=== PATIENT | male | born 1950 | race Caucasian/White ===

== ENCOUNTER → 2017-07-03 | Outpatient (CLI) | payer BC ==
[~2017-07-03] MED LIST: GLYCOPYRROLATE2 MG PO; HYOSCYAMINE0.125 M1 PO
[2017-07-04 08:45] LABS: Iron 14 ug/dL (38-169); Iron Saturation 3 % (15-55); UIBC 416 ug/dL (111-343)
== END ==
LOC: RT 12:47
PROVIDERS: Nurse Practitioner Family
DX: R06.02 Shortness of breath (principal); D64.9 Anemia, unspecified

== ENCOUNTER 2017-07-31 08:24 | Day surgery (SDC) | payer BC ==
[~2017-07-31] VITALS: Ht 175.3 cm; Wt 100.7 kg
--- NOTE | 2017-07-31 10:39 | Operative Note ---
Flex Sigmoidoscopy ([place]) Procedure date: 07/31/17 Date of : 54 Procedure:Flex Sigmoidoscopy Flexible sigmoidoscopy with hemorrhoid band ligation Indications: Mr. Mccarty is a 66-year-old gentleman with obstipation/incomplete defecation. The patient did have a colonoscopy with nd in December 2016 and had diverticulosis and grade 2 internal hemorrhoids which were banded. He had no colon polyps but has had colon polyps removed previously. His sister had colon cancer at the age of 53 and his mother also had colon cancer in her late 40s. The patient did not improve with Metamucil or MiraLAX and had constant urgency with very little evacuation. The patient has had rectal bleeding a few times with rectal pain. Performing Provider: Diaz Mccormack MD Referrring Provider: Karen NOGUEIRA Sedation: MAC sedation Procedure: Prior to the procedure, a history and physical exam was performed, and patient medications and allergies were reviewed. The risks and benefits of the procedure and the sedation options and risks were discussed with the patient. All questions were answered and informed consent was obtained. Patient identification and proposed procedure were verified by the physician and the nurse. The patient was placed in a left lateral decubitus position. Throughout the procedure, the patient's blood pressure, pulse, and oxygen saturations were monitored continuously. Findings: On digital rectal examination there was normal rectal tone. There were no external hemorrhoids. The scope was then inserted through the anal canal and the rectum and advanced to 60 cm. Upon withdrawal, there was diverticulosis of the sigmoid colon. Upon retroflexion within the rectum there were grade 1-2 internal hemorrhoids. These were banded using 4 bands with excellent ligation effect. Impressions: 1. Left-sided diverticulosis 2. Grade 1-2 internal hemorrhoids status post band ligation 4 Recommendations: I would encourage water soluble fiber supplementation (Konsyl or Fiber Plus) on a long-term daily maintenance basis. Complications: None EBL (ml): 0 at 0838
[2017-07-31 12:44] VITALS: BP 148/76
== END 2017-07-31 11:30 | disposition home or self-care (01) ==
LOC: SDC 08:24
PROVIDERS: Internal Medicine Gastroenterology
PROC: 06LY4CC Occlusion of Hemorrhoidal Plexus with Extraluminal Device, Percutaneous Endoscopic Approach (ICD-10-PCS; principal; 2017-07-31 10:00)
DX: K57.30 Diverticulosis of large intestine without perforation or abscess without bleeding (principal); K64.0 First degree hemorrhoids; K64.1 Second degree hemorrhoids; Z87.19 Personal history of other diseases of the digestive system; Z80.0 Family history of malignant neoplasm of digestive organs

== ENCOUNTER 2017-08-16 13:14 | Observation (INO) | payer BC ==
[~2017-08-16] VITALS: Ht 175.3 cm; Wt 92.7 kg
[2017-08-16 13:22] VITALS: BP 120/63
[2017-08-16] MEDS ORDERED: SIMVASTATIN20 MG PO (13:26)
[2017-08-16] MEDS ORDERED: CLOPIDOGREL75 M2 PO (13:27)
[2017-08-16] MEDS ORDERED: LOSARTAN POTASS50 MG PO (13:27)
[2017-08-16] MEDS ORDERED: DICLOFENAC SODI75 M2 PO (13:28)
[2017-08-16] MEDS ORDERED: ACTOS 15MG TABL15 MG PO (13:30)
[2017-08-16 13:38] LABS: HEMOGLOBIN 9.7 g/dL (14.1-18.0); LYMPH # 1.6 K/mm3 (0.7-4.5); LYMPH % 22.2 % (10-50)
[2017-08-16 13:53] LABS: STOOL OCCULT BLOOD POSITIVE (NEG)
--- NOTE | 2017-08-16 13:54 | Emergency Room Report ---
History of Present Illness Time Seen by 1346 Presenting Problem in Triage Pt arrived:Wheelchair Presenting Problem:PT C/O BLEEDING FROM HIS RECTUM SINCE 1000. PT REPORTS THIS HAS BEEN GOING ON FOR ROUGHLY A WEEK BUT TODAY'S BLEEDING HAS BEEN THE WORSE. PT ADVISES OF HEMMOROID SURGERY 3 WEEKS AGO. 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 N Clinical Suspician of Infection? N Mental Status: 1 - Regular (Normal Baseline) Sepsis Risk:Low Sepsis Risk Have you (or family members/close friends) recently traveled outside the [place]? N If Yes, where/when: Have you had exposure to infectious disease within the past month? N TB? Other? Specify: Comment The patient complains of massive rectal bleeding. He had banding of hemorrhoids done on 07/31/[address] Mccormack. He has had some bleeding for about a week, but was feeling good and canceled his follow-up appointment for yesterday. Today he had massive amount of bleeding, a bucket full". He has some lightheadedness which has improved with IV fluids. He denies abdominal pain or vomiting. He says his rectum is very sore. Sometimes when he has a bowel movement he can feel something hanging out. ALLERGIES Coded Allergies: Penicillins (I-ITCHING 12/30/16) Home Medications Reported Medications Diclofenac Sodium 75 MG PO Q12 #180 Simvastatin 20 MG PO DAILY #90 Losartan Potassium (Losartan 50MG) 50 MG PO DAILY #90 CLOPIDOGREL BISULFATE (Clopidogrel) 75 MG PO DAILY #90 Pioglitazone (Actos 15MG) 15 MG PO DAILY History Medical History General CAD? No Angina: No CT: No Hypertension? No Hyperlipidemia? No CHF? No DVT? No PE? No COPD? No Asthma? No Anemia? No GERD? No Gastric ulcers? No GI Bleed? No Hernia? Yes Thyroid Problems? No Hypothyroidism? No CVA? No Seizures? No Diabetes? Yes Insulin Dependent: No Insulin Pump: No Home FSBS? Yes Renal Insuffiency? No End Stage Renal Disease? No UTI? No Stones? Yes BPH? No GB Disease: Yes Nephritic Syndrome? No Asplenia? No Hepatitis? No Sickle Cell Disease? No Arthritis? No Migraines? No Cataracts? No Glaucoma? No MRSA? No HIV? No TB? No Anxiety? No Depression? No Cancer? No More? No Immunization Hx DT/Tetanus 1-4 YRS Flu THISFLUSEA Pneumonia NEVER Surgical Hx Previous Surgery?Y PARTIAL LT KNEE REPLACEMN RT ROTATOR CUFF REPAIR LYMPH NODE REMOVED RT AXILLA LAP CHOLECYSTECTOMY Family History Family Hx Diabetes Yes CAD Yes Hypertension Yes Hyperlipidemia Yes Cancer Yes TB Yes Social History Smoking Hx Smoker: Never Smoker Tobacco: No Alcohol Alcohol: No Review of Systems All Other Systems Reviewed and Negative Constitutional denies fever Gastrointestinal see HPI, denies abdominal pain, denies nausea, denies vomiting Physical Exam Vital Signs Vital Signs Date Time Temp Pulse Resp B/P Pulse O2 O2 Flow FiO2 Ox Delivery Rate 08/16 1322 98.4 86 22 120/63 100 General Appearance no apparent distress Eye Exam - bilateral eye normal exam, bilateral eye PERRL, bilateral eye EOMI Ear, Nose, Throat hearing grossly normal, normal ENT inspection Neck normal inspection, non-tender, supple, full range of motion Respiratory Status Yes: trachea midline, chest symmetrical. No: respiratory distress. Lung Sounds bilateral: normal breath sounds, lungs clear. Cardiovascular normal exam, regular rate/rhythm, no peripheral edema, no gallop, no JVD, no murmur, no rub, normal peripheral pulses Peripheral Pulses Pulses normal Yes Gastrointestinal normal bowel sounds, normal exam, non tender, soft, no organomegaly Extremities normal inspection Rectal nothing protruding externally. Tenderness. No edema or erythema. Unable to perform digital rectal examination secondary to tenderness. Neurologic alert, normal exam, oriented x 3 Mental status normal mood/affect Skin intact, warm/dry, pallor Medical Decision Making LABS/Meds/Orders Pt receiving controlled substance in ED? No Results/Orders Laboratory Tests 08/16/17 1355: Antibody Screen NEGATIVE, Miscellaneous Test POSITIVE 08/16/17 1331: Stool Occult Blood Cancelled 08/16/17 1330: Sodium 138, Potassium 3.9, Chloride 104, Carbon Dioxide 23, BUN 17, Creatinine 1.2, Estimated Creat Clear 84, Estimated GFR (MDRD) 61, Glucose 136 H, Calcium 8.8, Total Bilirubin 0.5, AST 27, ALT 32, Alkaline Phosphatase 67, Total Protein 7.0, Albumin 3.6, Globulin 3.4 H, Albumin/Globulin Ratio 1.1, WBC 7.2, RBC 4.37 L, Hgb 9.7 L, Hct 32.0 L, MCV 73.2 L, RDW 22.2 H, Plt Count 404, MPV 7.4, Gran % 69.6, Gran # 5.0, Lymphocytes % 22.2, Monocytes % 4.9, Eosinophils % 2.8, Basophils % 0.5, Lymphocytes # 1.6, Monocytes # 0.4, Eosinophils # 0.2, Basophils # 0.0, PUBS MCHC 30.4 L, MCH 22.3 L 08/16/17 1320: Stool Occult Blood POSITIVE Current Medication Orders Sig/Annika Start time Last Medication Dose Route Stop Time Status Admin Iopamidol 75 ML ONCE ONE 08/16 1430 DC 08/16 IV 08/16 1431 1430 Sodium Chloride 10 ML ONCE ONE 08/16 1430 DC 08/16 IV 08/16 1431 1430 Sodium Chloride 500 ML .Q1H 08/16 1345 DC 08/16 IV 08/16 1414 1347 Sodium Chloride 10 ML PRN PRN 08/16 1345 AC IV 08/17 1331 Sodium Chloride 1,000 ML .STK-MED ONE 08/16 1337 DC IV Sodium Chloride 10 ML PRN PRN 08/16 1330 AC IV 08/17 1322 Orders Procedure Date/time Status Decision to admit 08/16 1520 Active STOOL OCCULT BLOOD 08/[address] ABD/PELVIS REQ 08/16 133 Complete IV SALINE LOCK 08/16 1331 Active TYPE FOR CROSSMATCH 08/16 1331 Complete CBC WITH AUTO DIFF 08/16 1331 Complete CHEM 12 PROFILE 08/16 1331 Complete XRAY/CT/US XRAY/CT/US CT abdomen, pelvis Comment CT scan interpreted by radiologist: Mild thickening of the rectosigmoid colon. This could be due to nondistention or mild proctocolitis. Few scattered diverticula he descending colon and sigmoid colon. Indeterminant isodensity of the liver at the gallbladder fossa region. Questionable clinical significance. RIGHT lower lobe pneumonia. Progress - 3:00 PM: I have discussed the case with Dr. Watson who agrees to admit the patient to the hospital. We discussed the patient's clinical information, including history, exam, laboratory and radiology results and ED course. Per hospital procedure, I will write temporary bridge inpatient orders on the patient. Specific orders requested by the admitting physician: Surgery consult 3:50 PM: Discussed x-ray and CT finding of possible pneumonia with patient. He says he has had rhinorrhea, congestion of his RIGHT year in sinus, and a mild productive cough. Will treat with Levaquin. 3:58 PM: Discussed with Dr. Guaman. Departure Departure Disposition Still a Patient Clinical Impression Primary Impression: Rectal bleeding Secondary Impressions: Community acquired pneumonia Qualifiers: Laterality: right Lung location: lower lobe of lung Qualified Code: J18.1 - Lobar pneumonia, unspecified organism Condition STABLE ED Critical Care Critical Care No at 6800
--- OUTSIDE RECORDS SUMMARY | 2017-08-16 13:58 | External Medical Summary Rpt | CCD ---
Author Author , OCTAVIO CUNNINGHAM Address Unknown Phone [email or web address] Immunization Name Date Rout CVX Reac Dose Comm Prov Is Faci e tion ent ider Refu lity Give sed n Infl 10-0 Intr 150 0.5 Hist GSHA No GSHA uenz 9-20 amus mL oric NE NE a 17 cula al Quad r Info Inj rmat ion - Sour ce Unsp ecif ied PPV2 10-0 Intr 33 0.5 Hist WALM No WALM 3 4-20 amus mL oric ART5 ART5 16 cula al 91 91 r Info rmat ion - Sour ce Unsp ecif ied Infl 10-0 Intr 150 0.5 Hist WALM No WALM uenz 4-20 amus mL oric ART5 ART5 a 16 cula al 91 91 Quad r Info Inj rmat ion - Sour ce Unsp ecif ied
--- OUTSIDE RECORDS SUMMARY | 2017-08-16 13:58 | External Medical Summary Rpt | CCD ---
Author Author , OCTAVIO Organization OCT[facility] Address Unknown Phone [email or web address] Purpose Continuity of Care Document - 06-19-2017 through 2016 Results Labs Lab Lab Date Result Refere Interp Status Commen Order Detail nces retati t Range on Hemoglobin A1c in Blood (06-19-2017 08:25) Hemoglo 6.8 % 0.0% Normal complet bin A1c 017 - ed in 08:25 7.0% Blood
--- OUTSIDE RECORDS SUMMARY | 2017-08-16 13:58 | External Medical Summary Rpt | CCD ---
Author Author , OCTAVIO CUNNINGHAM Address Unknown Phone [email or web address] Immunization Name Date Rout CVX Reac Dose [...]
--- OUTSIDE RECORDS SUMMARY | 2017-08-16 13:58 | External Medical Summary Rpt | CCD ---
Author Author [employer] Organization [employer] Address Unknown Phone Unavailable Purpose Continuity of Care Document - through 2016
--- OUTSIDE RECORDS SUMMARY | 2017-08-16 13:58 | External Medical Summary Rpt | CCD ---
Author Author , OCTAVIO Organization [facility] Address Unknown Phone Purpose Continuity of Care Document - 06-19-2017 through 2016 Results Labs Lab Lab Date Result Refere Interp Status Commen Order Detail nces retati t Range on Hemoglobin A1c in Blood (06-19-2017 08:25) Hemoglo 6.8 % 0.0% Normal complet bin A1c 017 - ed in 08:25 7.0% Blood
--- OUTSIDE RECORDS SUMMARY | 2017-08-16 13:59 | External Medical Summary Rpt ---
Author Author OCTAVIO Christiansen, [employer] Organization [employer] Address Unknown Phone Unavailable Results Glucose [Mass/volume] in Capillary blood by Glucometer Observa Value Referen Units Interpr Notes Date tion ce etation Range Glucose 70 - 110 mg/dl High No Jul 31 [Mass/vol informati 2017 9:20 ume] in on in AM Capillary source blood by data Glucomete r Iron and TIBC Observa Value Referen Units Interpr Notes Date tion ce etation Range Iron 250 - 450 ug/dL No No Jun 23 binding informati informati 2017 capacity on in on in 12:58 PM [Mass/vol source source ume] in data data Serum or Plasma Iron 111 - 343 ug/dL High No Jul 03 binding informati 2017 capacity. on in 12:58 PM unsaturat source ed data [Mass/vol ume] in Serum or Plasma Iron 38 - 169 ug/dL Low No Jul 03 [Mass/vol informati 2017 ume] in on in 12:58 PM Serum or source Plasma data Iron 15 - 55 % Low Performed Jul 03 saturatio at: CB 2017 n [Mass] - [facility] 12:58 PM in Serum or Plasma [address] [id number] Budget Clerk: Burak Pretty PhD, Phone: [phone] Ferritin [Mass/volume] in Serum or Plasma Observa Value Referen Units Interpr Notes Date ti ce etation Range Ferritin 8 - 388 ng/mL Normal No Jun 23 [Mass/vol informati 2017 ume] in on in 12:58 PM Serum or source Plasma data 25-Hydroxyvitamin D [Mass/volume] in Serum or Plasma Observa Value Referen Units Interpr Notes Date tion ce etation Range 25-Hydrox 30.0 - ng/mL No Vitamin D Oct 9 yvitamin 100.0 informati 2017 8:25 D on in deficienc AM [Mass/vol source y has ume] in data been Serum or defined Plasma by the [place] ofMedicin e and an Endocrine Society practice guideline as alevel of serum 25-OH vitamin D less than 20 ng/mL (1,2).The Endocrine Society went on to further define vitamin Dinsuffic iency as a level between 21 and 29 ng/mL (2).1. IOM (Institut e of Medicine) . 2010. Dietary reference intakes for calcium and D. [place] ru[place]: [employer].2. Fletcher MF, Garth NC, Julia Vidal WEEKS, et al.Evalua tion, treatment , and preventio n of vitamin Ddeficien cy: an Endocrine Society clinical practiceg uideline. JCEM. 2010; 96(7):191 1-30.Perf ormed at: - [facility] [address] [id number] [place], [place] [id number] Budget Clerk: Burak Pretty PhD, Phone: [phone] Hemoglobin A1c in Blood Observa Value Referen Units Interpr Notes Date tion ce etation Range Hemoglo 6.8 0.0 - % Normal < 6% Jun 19 bin A1c 7.0 NON-GLENN 2017 in BETIC 8:25 AM Blood LEVEL< 7% CONTROL LED DIABETI C LEVEL> 8% POORLY CONTROL LED DIABETI C LEVEL Comprehensive metabolic 2000 panel in Serum or Plasma Observa Value Referen Units Interpr Notes Date tion ce etation Range Albumin/G 1.1 - 1.8 No Normal No Jun 19 lobulin informati informati 2016 8:25 [Mass on in on in AM ratio] in source source Serum or data data Plasma Albumin 3.4 - 5.0 gm/dL Normal No Jun 19 [Mass/vol informati 2016 8:25 ume] in on in AM Serum or source Plasma data Alkaline 46 - 116 U/L Normal No Jun 19 phosphata informati 2016 8:25 se on in AM [Enzymati source c data activity/ volume] in Serum or Plasma Bilirubin 0.2 - 1.0 mg/dL Normal No Jun 19 .total informati 2016 8:25 [Mass/vol on in AM ume] in source Serum or data Plasma Urea 7 - 18 mg/dL Normal No Jun 19 nitrogen informati 2016 8:25 [Mass/vol on in AM ume] in source Serum or data Plasma Calcium 8.5 - mg/dL Normal No Jun 19 [Mass/vol 10.1 informati 2016 8:25 ume] in on in AM Serum or source Plasma data Chloride 98 - 107 mmoL/L Normal No Oct 9 [Moles/vo informati 2016 8:25 lume] in on in AM Serum or source Plasma data Carbon 21.0 - mmoL/L Normal No Oct 9 dioxide, 32.0 informati 2016 8:25 total on in AM [Moles/vo source lume] in data Serum or Plasma Creatinin 0.70 - mg/dL Normal No Jun 9 e 1.30 informati 2016 8:25 [Mass/vol on in AM ume] in source Serum or data Plasma Estimated >60 ML/MIN No REFERENCE Oct 9 informati RANGE: 2017 8:25 glomerula on in >60 AM r source ML/MIN/1. filtratio data 73 SQUARE n rate METERSIf (GF this patient is -A merican, then multiply theresult by 1.210. Globulin 1.3 - 3.2 gm/dL High No Jun 9 [Mass/vol informati 2016 8:25 ume] in on in AM Serum source data Glucose 74 - 106 mg/dL High No Jun 9 [Mass/vol informati 2016 8:25 ume] in on in AM Serum or source Plasma data Potassium 3.5 - 5.1 mmoL/L Normal No Oct 9 informati 2016 8:25 [Moles/vo on in AM lume] in source Serum or data Plasma Sodium 136 - 145 mmoL/L Normal No Jun 9 [Moles/vo informati 2016 8:25 lume] in on in AM Serum or source Plasma data Aspartate 15 - 37 U/L Normal No Jun 9 informati 2016 8:25 aminotran on in AM sferase source [Enzymati data c activity/ volume] in Serum or Plasma Alanine 12 - 78 U/L Normal No Oct 9 aminotran informati 2016 8:25 sferase on in AM [Enzymati source c data activity/ volume] in Serum or Plasma Protein 6.4 - 8.2 gm/dL Normal No Jun 9 [Mass/vol informati 2016 8:25 ume] in on in AM Serum or source Plasma data Thyroxine (T4) free [Mass/volume] in Serum or Plasma Observa Value Referen Units Interpr Notes Date tion ce etation Range Thyroxine 0.76 - ng/dL Normal No Jun 9 (T4) 1.46 informati 2017 8:25 free on in AM [Mass/vol source ume] in data Serum or Plasma Lipid 1996 panel in Serum or Plasma Observa Value Referen Units Interpr Notes Date tion ce etation Range Cholester < 200 mg/dL No No Jun 9 ol informati informati 2016 8:25 [Moles/vo on in on in AM lume] in source source Unspecifi data data ed specimen Cholester 40 - 60 MG/DL Normal No Jun 19 ol in HDL informati 2016 8:25 on in AM [Mass/vol source ume] in data Serum or Plasma Cholester 0 - 130 mg/dL Normal No Jun 19 ol in LDL informati 2016 8:25 on in AM [Mass/vol source ume] in data Serum or Plasma by calculati on Triglycer 30 - 200 mg/dL Normal No Jun 19 griselda informati 2016 8:25 [Moles/vo on in AM lume] in source Serum or data Plasma Cholester 0 - 40 No Normal No Jun 19 ol in informati informati 2016 8:25 VLDL on in on in AM [Mass/vol source source ume] in data data Serum or Plasma Prostate specific Ag [Mass/volume] in Cerebral spinal fluid Observa Value Referen Units Interpr Notes Date tion ce etation Range Prostate 0.0 - 4.0 ng/mL Normal No Jun 19 specific ati 2016 8:25 Ag on in AM [Mass/vol source ume] in data Cerebral spinal fluid Thyrotropin [Units/volume] in Serum or Plasma Observa Value Referen Units Interpr Notes Date tion ce etation Range Thyrotrop 0.358 - uIU/ml Normal No Jun 19 in 3.740 informati 2016 8:25 [Units/vo on in AM lume] in source Serum or data Plasma CBC W Auto Differential panel in Blood Observa Value Referen Units Interpr Notes Date tion ce etation Range Basophils 0 - 0.2 K/MM3 Normal No Jun 19 informati 2016 8:25 [#/volume on in AM ] in source Blood by data Automated count Basophils 0.1 - 2.0 % Normal No Jun 19 /100 informati 2016 8:25 leukocyte on in AM s in source Blood by data Automated count Eosinophi 0.0 - 0.4 K/mm3 Normal No Jun 9 ls ati 2016 8:25 [#/volume on in AM ] in source Blood by data Automated count Eosinophi 0.1 - % Normal No Jun 19 ls/100 12.0 informati 2016 8:25 leukocyte on in AM s in source Blood by data Automated count Granulocy 1.3 - 8.0 K/mm3 Normal No Jun 9 sherrill informati 2016 8:25 [#/volume on in AM ] in source Blood by data Automated count Granulocy 37.0 - % Normal No Jun 19 sherrill/100 80.0 informati 2016 8:25 leukocyte on in AM s in source Blood by data Automated count Hematocri 42.0 - % Low No Jun 19 t [Volume 52.0 informati 2016 8:25 on in AM Fraction] source of Blood data Hemoglobi 14.1 - g/dL Low No Jun 19 n 18.0 informati 2016 8:25 [Mass/vol on in AM ume] in source Blood data Lymphocyt 0.7 - 4.5 K/mm3 Normal No Jun 19 es informati 2016 8:25 [#/volume on in AM ] in source Unspecifi data ed specimen by Automated count Lymphocyt 10 - 50 % Normal No Jun 19 es informati 2016 8:25 [#/volume on in AM ] in source Unspecifi data ed specimen by Automated count Erythrocy 27 - 31.2 pg Low No Jun 19 te mean informati 2016 8:25 corpuscul on in AM ar source hemoglobi data n [Entitic mass] Erythrocy 31.8 - g/dl Low No Jun 19 te mean 35.4 informati 2016 8:25 corpuscul on in AM ar source hemoglobi data n concentra tion [Mass/vol ume] by Automated count Erythrocy 82.2 - fl Low No Jun 19 te mean 97.8 informati 2016 8:25 corpuscul on in AM ar volume source [Entitic data volume] by Automated count Monocytes 0.1 - 1.0 K/mm3 Normal No Jun 9 informati 2016 8:25 [#/volume on in AM ] in source Blood by data Automated count Monocytes 1.7 - 9.3 % Normal No Jun 19 / informati 2016 8:25 leukocyte on in AM s in source Blood by data Automated count Platelet 7.4 - fl Normal No Jun 19 mean 10.4 informati 2016 8:25 volume on in AM [Entitic source volume] data in Blood by Automated count Platelets 142 - 424 K/mm3 Normal No Jun 9 informati 2016 8:25 [#/volume on in AM ] in source Blood data Erythrocy 4.6 - 6.2 M/mm3 Low No Jun 9 sherrill informati 2016 8:25 [#/volume on in AM ] in source Amniotic data fluid Erythrocy 11.5 - % High No Jun 19 te 17.5 informati 2016 8:25 distribut on in AM ion width source [Entitic data volume] by Automated count Leukocyte 4.8 - K/MM3 Normal No Jun 19 s 10.8 informati 2016 8:25 [#/volume on in AM ] in source Blood data
--- OUTSIDE RECORDS SUMMARY | 2017-08-16 13:59 | External Medical Summary Rpt ---
[...] [facility] 12:58 PM in Serum or Plasma [address] [id number] Server Programmer: Burak Pretty PhD, Phone: [phone] Ferritin [Mass/volume] in Serum or Plasma [...] been Serum or defined Plasma by the [place] ofMedicin e and an Endocrine Society practice guideline as alevel of serum 25-OH vitamin D less than 20 ng/mL (1,2).The Endocrine Society went on to further define vitamin Dinsuffic iency as a level between 21 and 29 ng/mL (2).1. IOM (Institut e of Medicine) . 2010. Dietary reference intakes for calcium and D. [place]: [employer].2. Fletcher MF, Garth NC, Julia Vidal WEEKS, et al.Evalua tion, treatment , and preventio n of vitamin Ddeficien cy: an Endocrine Society clinical practiceg uideline. JCEM. 2010; 96(7):191 1-30.Perf ormed at: - [facility] [address] [id number] [place], [place] [id number] Server Programmer: Burak Pretty PhD, Phone: [phone] Hemoglobin A1c in Blood Observa Value [...]
[2017-08-16 14:45] LABS: ABO BLOOD TYPE A; RH BLOOD TYPE POSITIVE
--- NOTE | 2017-08-16 15:02 | RADIOLOGY REPORT PS360 ---
CT ABD PELVIS W/ CONTRAST CLINICAL INDICATION: RECTAL BLEEDING ORDERING PHYSICIAN: Dave Mccormack MD PATIENT AGE: 66 years COMPARISON: 11/27/2014 TECHNIQUE: Axial images obtained with sagittal and coronal reformats. PROCEDURE: Oral Contrast: None IV Contrast: 75 mL Isovue-370. FINDINGS: Opacification is present in right lung base posteriorly consistent with pneumonia. There is a 3 x 2.7 cm area of decreased attenuation within the inferior aspect of the medial segment of the left hepatic lobe segment 4B. This is at the area of the gallbladder fossa. Patient has had a previous cholecystectomy. The spleen, adrenal glands, pancreas, and kidneys have an unremarkable appearance. No intestinal obstruction or free air. No pelvic mass or abnormal fluid collection. There is mild diverticulosis of the sigmoid and descending colon but no evidence of diverticulitis. No evidence of appendicitis. There is mild thickening of the rectosigmoid versus nondistention. Degenerative changes lumbar spine. IMPRESSION: 1. Mild thickening of the rectosigmoid colon. This could be due to nondistention or mild proctocolitis. There are few scattered diverticula within the descending colon and sigmoid colon. 2. Indeterminate isodensity of the liver at the gallbladder fossa region. Question clinical significance. This could be related to the previous gallbladder surgery. One cannot exclude the possibility of a neoplastic process. Short-term follow-up recommended in 3 months with contrast to confirm short-term stability. 3. Right lower lobe pneumonia
--- NOTE | 2017-08-16 15:08 | RADIOLOGY REPORT PS360 ---
CHEST-AP VIEW ONLY HISTORY: BLEEDING FROM RECTUM ORDERING PHYSICIAN: Dave Mccormack MD PATIENT AGE: 66 years COMPARISON: None available FINDINGS: The cardiomediastinal silhouette and pulmonary vascularity are within normal limits. There is patchy density in right lung base medially consistent with infiltrate better seen on the CT scan of the same day. The remaining lungs are clear.. No acute bony abnormalities. IMPRESSION: Right basilar infiltrate
--- OUTSIDE RECORDS SUMMARY | 2017-08-16 15:29 | External Medical Summary Rpt | CCD ---
Author Author , OCTAVIO Organization [facility] Address Unknown Phone [email or web address] Immunization Name Date Rout CVX Reac Dose [...]
--- OUTSIDE RECORDS SUMMARY | 2017-08-16 15:29 | External Medical Summary Rpt | CCD ---
Author Author , OCTAVIO Organization OCTAVIO Address Unknown Phone [email or web address] Purpose Continuity of Care Document - 06-19-2017 through 2016 Results Labs Lab Lab Date Result Refere Interp Status Commen Order Detail nces retati t Range on Blood type & Crossmatch panel in Blood (08-16-2017 13:55) Blood NEGATIV NEGATIV complet group 017 E E ed antibod 13:55 y screen [Presen ce] in Serum or Plasma Rh POSITIV complet [Type] 017 E ed in 13:55 Blood ABO A complet group 017 ed [Type] 13:55 in Blood Hemoglobin.gastrointestinal [Presence] in Stool (08-16-2017 13:20) Hemoglo POSITIV NEG complet bin.gas 017 E ed trointe 13:20 stinal [Presen ce] in Stool --1st specime n Hemoglobin A1c in Blood (06-19-2017 08:25) Hemoglo 6.8 % 0.0% Normal complet bin A1c 017 - ed in 08:25 7.0% Blood
--- OUTSIDE RECORDS SUMMARY | 2017-08-16 15:29 | External Medical Summary Rpt | CCD ---
Author Author , OCTAVIO Organization OCTAVIO Address Unknown Phone [email or web address] Purpose Continuity of Care Document - 06-19-2017 [...]
--- OUTSIDE RECORDS SUMMARY | 2017-08-16 15:29 | External Medical Summary Rpt | CCD ---
Author Author , OCTAVIO Organization OCTAVIO Address Unknown Phone [email or web address] Immunization Name Date Rout CVX Reac Dose [...]
--- OUTSIDE RECORDS SUMMARY | 2017-08-16 15:30 | External Medical Summary Rpt ---
Author Author [employer], [employer] Organization [employer] Address Unknown Phone Unavailable Results Blood type & Crossmatch panel in Blood Observa Value Referen Units Interpr Notes Date tion ce etation Range Blood NEGATIV NEGATIV No No No Aug 16 group E E informa informa informa 2017 antibod tion in tion in in 1:55 PM y source source source screen data data data [Presen ce] in Serum or Plasma Rh POSITIV No No No No Aug 16 [Type] E informa informa informa informa 2017 in tion in tion in tion in tion in 1:55 PM Blood source source source source data data data data ABO A No No No Aug 16 group informa informa informa 2017 [Type] tion in ti in ti in 1:55 PM in source source source Blood data data data Comprehensive metabolic 2000 panel in Serum or Plasma Observa Value Referen Units Interpr Notes Date tion ce etation Range Albumin/G 1.1 - 1.8 No Normal No Aug 16 lobulin informati informati 2016 1:30 [Mass on in on in PM ratio] in source source Serum or data data Plasma Albumin 3.4 - 5.0 gm/dL Normal No Aug 16 [Mass/vol informati 2016 1:30 ume] in on in PM Serum or source Plasma data Alkaline 46 - 116 U/L Normal No Aug 16 phosphata informati 2016 1:30 se on in PM [Enzymati source c data activity/ volume] in Serum or Plasma Bilirubin 0.2 - 1.0 mg/dL Normal No Aug 16 .total informati 2016 1:30 [Mass/vol on in PM ume] in source Serum or data Plasma Urea 7 - 18 mg/dL Normal No Aug 16 nitrogen informati 2016 1:30 [Mass/vol on in PM ume] in source Serum or data Plasma Calcium 8.5 - mg/dL Normal No Aug 16 [Mass/vol 10.1 informati 2017 1:30 ume] in on in PM Serum or source Plasma data Chloride 98 - 107 mmoL/L Normal No Aug 16 [Moles/vo informati 2016 1:30 lume] in on in PM Serum or source Plasma data Carbon 21.0 - mmoL/L Normal No Aug 16 dioxide, 32.0 informati 2016 1:30 total on in PM [Moles/vo source lume] in data Serum or Plasma Creatinin 0.70 - mg/dL Normal No Aug 16 e 1.30 inform2016 1:30 [Mass/vol on in PM ume] in source Serum or data Plasma Creatinin 50 - 200 ML/MIN Normal No Aug 16 e renal informati 2016 1:30 clearance on in PM source predicted data by Cockcroft -Gault formula Estimated >60 ML/MIN No REFERENCE Aug 16 informati RANGE: 2017 1:30 glomerula on in >60 PM r source ML/MIN/1. filtratio data 73 SQUARE n rate METERSIf (GF this patient is -A merican, then multiply theresult by 1.210. Globulin 1.3 - 3.2 gm/dL High No Aug 16 [Mass/vol informati 2016 1:30 ume] in on in PM Serum source data Glucose 74 - 106 mg/dL High No Aug 16 [Mass/vol informati 2016 1:30 ume] in on in PM Serum or source Plasma data Potassium 3.5 - 5.1 mmoL/L Normal No Aug 162016 1:30 [Moles/vo on in PM lume] in source Serum or data Plasma Sodium 136 - 145 mmoL/L Normal No Aug 16 [Moles/vo ati 2016 1:30 lume] in on in PM Serum or source Plasma data Aspartate 15 - 37 U/L Normal No Aug 16 inform2016 1:30 aminotran on in PM sferase source [Enzymati data c activity/ volume] in Serum or Plasma Alanine 12 - 78 U/L Normal Aug 16 aminotran 2016 1:30 sferase on in PM [Enzymati source c data activity/ volume] in Serum or Plasma Protein 6.4 - 8.2 gm/dL Normal No Aug 16 [Mass/vol informati 2016 1:30 ume] in on in PM Serum or source Plasma data CBC W Auto Differential panel in Blood Observa Value Referen Units Interpr Notes Date tion ce etation Range Basophils 0 - 0.2 K/MM3 Normal No Aug 162016 1:30 [#/volume on in PM ] in source Blood by data Automated count Basophils 0.1 - 2.0 % Normal No Aug 16 /100 2016 1:30 leukocyte on in PM s in source Blood by data Automated count Eosinophi 0.0 - 0.4 K/mm3 Normal No Aug 16 ls 2016 1:30 [#/volume on in PM ] in source Blood by data Automated count Eosinophi 0.1 - % Normal No Aug 16 ls/100 12.0 inform2016 1:30 leukocyte on in PM s in source Blood by data Automated count Granulocy 1.3 - 8.0 K/mm3 Normal No Aug 16 sherrill 2016 1:30 [#/volume on in PM ] in source Blood by data Automated count Granulocy 37.0 - % Normal No Aug 16 sherrill/100 80.0 2016 1:30 leukocyte on in PM s in source Blood by data Automated count Hematocri 42.0 - % Low No Aug 16 t [Volume 52.0 2016 1:30 on in PM Fraction] source of Blood data Hemoglobi 14.1 - g/dL Low No Aug 16 n 18.0 2016 1:30 [Mass/vol on in PM ume] in source Blood data Lymphocyt 0.7 - 4.5 K/mm3 Normal No Aug 16 es 2016 1:30 [#/volume on in PM ] in source Unspecifi data ed specimen by Automated count Lymphocyt 10 - 50 % Normal No Aug 16 es 2016 1:30 [#/volume on in PM ] in source Unspecifi data ed specimen by Automated count Erythrocy 27 - 31.2 pg Low No Aug 16 te mean 2016 1:30 corpuscul on in PM ar source hemoglobi data n [Entitic mass] Erythrocy 31.8 - g/dl Low Aug 16 te mean 35.4 2016 1:30 corpuscul on in PM ar source hemoglobi data n concentra tion [Mass/vol ume] by Automated count Erythrocy 82.2 - fl Low Aug 16 te mean 97.8 2016 1:30 corpuscul on in PM ar volume source [Entitic data volume] by Automated count Monocytes 0.1 - 1.0 K/mm3 Normal No Dec 6 informati 2017 1:30 [#/volume on in PM ] in source Blood by data Automated count Monocytes 1.7 - 9.3 % Normal No Aug 6 /100 informati 2016 1:30 leukocyte on in PM s in source Blood by data Automated count Platelet 7.4 - fl Normal No Aug 6 mean 10.4 informati 2016 1:30 volume on in PM [Entitic source volume] data in Blood by Automated count Platelets 142 - 424 K/mm3 No No Aug 6 informati informati 2016 1:30 [#/volume on in on in PM ] in source source Blood data data Erythrocy 4.6 - 6.2 M/mm3 Low No Aug 6 sherrill informati 2016 1:30 [#/volume on in PM ] in source Amniotic data fluid Erythrocy 11.5 - % High No Aug 16 te 17.5 informati 2016 1:30 distribut on in PM ion width source [Entitic data volume] by Automated count Leukocyte 4.8 - K/MM3 Normal No Aug 6 s 10.8 informati 2016 1:30 [#/volume on in PM ] in source Blood data Hemoglobin.gastrointestinal [Presence] in Stool Observa Value Referen Units Interpr Notes Date tion ce etation Range Hemoglo POSITIV NEG No No No Aug 16 bin.gas E informa informa informa 2017 trointe tion in tion in tion in 1:20 PM stinal source source source [Presen data data data ce] in Stool --1st specime n Glucose [Mass/volume] in Capillary blood by Glucometer Observa Value Referen Units Interpr Notes Date tion ce etation Range Glucose 70 - 110 mg/dl High No Jul 31 [Mass/vol informati 2016 9:20 ume] in on in AM Capillary source blood by data Glucomete r Iron and TIBC Observa Value Referen Units Interpr Notes Date tion ce etation Range Iron 250 - 450 ug/dL No No Jul 03 binding informati informati 2016 capacity on in on in 12:58 PM [Mass/vol source source ume] in data data Serum or Plasma Iron 111 - 343 ug/dL High No Jul 03 binding informati 2016 capacity. on in 12:58 PM unsaturat source ed data [Mass/vol ume] in Serum or Plasma Iron 38 - 169 ug/dL Low No Jul 03 [Mass/vol informati 2017 ume] in on in 12:58 PM Serum or source Plasma data Iron 15 - 55 % Low Performed Jul 03 saturatio at: CB 2017 n [Mass] - [facility] 12:58 PM in Serum or Plasma [id number] [place], [place] [id number] Fuel [employer] Handler: Burak Pretty PhD, Phone: [phone] Ferritin [Mass/volume] in Serum or Plasma Observa Value Referen Units Interpr Notes Date tion ce etation Range Ferritin 8 - 388 ng/mL Normal No Jul 03 [Mass/vol informati 2016 ume] in on in 12:58 PM Serum or source Plasma data 25-Hydroxyvitamin D [Mass/volume] in Serum or Plasma Observa Value Referen Units Interpr Notes Date tion ce etation Range 25-Hydrox 30.0 - ng/mL No Vitamin D Jun 19 yvitamin 100.0 informati 2017 8:25 D on in deficienc AM [Mass/vol source y has ume] in data been Serum or defined Plasma by the [place] [facility] e and an Endocrine Society practice guideline as alevel of serum 25-OH vitamin D less than 20 ng/mL (1,2).The Endocrine Society went on to further define vitamin Dinsuffic iency as a level between 21 and 29 ng/mL (2).1. IOM (Institut e of Medicine) . 2010. Dietary reference intakes for calcium and D. [place]: TheNation al Academies Press.2. Fletcher MF, Garth NC, Julia Vidal WEEKS, et al.Evalua tion, treatment , and preventio n of vitamin Ddeficien cy: an Endocrine Society clinical practiceg uideline. JCEM. 2010; 96(7):191 1-30.Perf ormed at: CB - [facility] [id number] [place], [place] [id number] Fuel Management Handler: Burak Pretty PhD, Phone: [phone] Hemoglobin A1c in Blood Observa Value [...] Albumin/G 1.1 - 1.8 No Normal No Oct 9 lobulin informati informati 2016 8:25 [Mass on in on in AM ratio] in source source Serum or data data Plasma Albumin 3.4 - 5.0 gm/dL Normal No Oct 9 [Mass/vol informati 2016 8:25 ume] in on in AM Serum or source Plasma data Alkaline 46 - 116 U/L Normal No Oct 9 phosphata informati 2016 8:25 se on in AM [Enzymati source c data activity/ volume] in Serum or Plasma Bilirubin 0.2 - 1.0 mg/dL Normal No Oct 9 .total informati 2016 8:25 [Mass/vol on in AM ume] in source Serum or data Plasma Urea 7 - 18 mg/dL Normal No Jun 9 nitrogen informati 2016 8:25 [Mass/vol on in AM ume] in source Serum or data Plasma Calcium 8.5 - mg/dL Normal No Jun 9 [Mass/vol 10.1 informati 2016 8:25 ume] in on in AM Serum or source Plasma data Chloride 98 - 107 mmoL/L Normal No Oct 9 [Moles/vo informati 2016 8:25 lume] in on in AM Serum or source Plasma data Carbon 21.0 - mmoL/L Normal No Oct 9 dioxide, 32.0 informati 2017 8:25 total on in AM [Moles/vo source lume] in data Serum or Plasma Creatinin 0.70 - mg/dL Normal No Oct 9 e 1.30 informati 2016 8:25 [Mass/vol on in AM ume] in source Serum or data Plasma Estimated >60 ML/MIN No REFERENCE Oct 9 informati RANGE: 2017 8:25 glomerula on in >60 AM r source ML/MIN/1. filtratio data 73 SQUARE n rate METERSIf (GF this patient is -A merican, then multiply theresult by 1.210. Globulin 1.3 - 3.2 gm/dL High No Oct 9 [Mass/vol informati 2016 8:25 ume] in on in AM Serum source data Glucose 74 - 106 mg/dL High No Jun 9 [Mass/vol informati 2016 8:25 ume] in on in AM Serum or source Plasma data Potassium 3.5 - 5.1 mmoL/L Normal No Jun 19 inform2016 8:25 [Moles/vo on in AM lume] in source Serum or data Plasma Sodium 136 - 145 mmoL/L Normal No Jun 19 [Moles/vo informati 2016 8:25 lume] in on in AM Serum or source Plasma data Aspartate 15 - 37 U/L Normal No Jun 19 inform2016 8:25 aminotran on in AM sferase source [Enzymati data c activity/ volume] in Serum or Plasma Alanine 12 - 78 U/L Normal No Jun 19 aminotran ati 2016 8:25 sferase on in AM [Enzymati source c data activity/ volume] in Serum or Plasma Protein 6.4 - 8.2 gm/dL Normal No Jun 19 [Mass/vol informati 2016 8:25 ume] in on in AM Serum or source Plasma data Thyroxine (T4) free [Mass/volume] in Serum or Plasma Observa Value Referen Units Interpr Notes Date tion ce etation Range Thyroxine 0.76 - ng/dL Normal No Jun 19 (T4) 1.46 2016 8:25 free on in AM [Mass/vol source ume] in data Serum or Plasma Lipid 1996 panel in Serum or Plasma Observa Value Referen Units Interpr Notes Date tion ce etation Range Cholester < 200 mg/dL No No Jun 19 ol informati informati 2016 8:25 [Moles/vo on in on in AM lume] in source source Unspecifi data data ed specimen Cholester 40 - 60 MG/DL Normal No Jun 19 ol in HDL informati 2016 8:25 on in AM [Mass/vol source ume] in data Serum or Plasma Cholester 0 - 130 mg/dL Normal No Jun 19 ol in LDL ati 2016 8:25 on in AM [Mass/vol source ume] in data Serum or Plasma by calculati on Triglycer 30 - 200 mg/dL Normal No Jun 19 griselda ati 2016 8:25 [Moles/vo on in AM lume] [...] 4.0 ng/mL Normal No Jun 19 specific informati 2016 8:25 Ag on in AM [Mass/vol [...] - 2.0 % Normal No Jun 19 / informati 2016 8:25 leukocyte on in AM s in source Blood by data Automated count Eosinophi 0.0 - 0.4 K/mm3 Normal No Jun 19 ls informati 2016 8:25 [#/volume on in AM ] in source Blood by data Automated count Eosinophi 0.1 - % Normal No Jun 19 ls/100 12.0 informati 2016 8:25 leukocyte on in AM s in source Blood by data Automated count Granulocy 1.3 - 8.0 K/mm3 Normal No Jun 19 sherrill informati 2016 8:25 [#/volume on in [...] Erythrocy 27 - 31.2 pg Low No Oct 9 te mean informati 2016 8:25 corpuscul on in AM ar source hemoglobi data n [Entitic mass] Erythrocy 31.8 - g/dl Low No Jun 9 te mean 35.4 informati 2016 8:25 corpuscul on in AM ar source hemoglobi data n concentra tion [Mass/vol ume] by Automated count Erythrocy 82.2 - fl Low No Jun 9 te mean 97.8 informati 2016 8:25 corpuscul on in AM ar volume source [Entitic data volume] by Automated count Monocytes 0.1 - 1.0 K/mm3 Normal No Oct 9 informati 2016 8:25 [#/volume on in AM ] in source Blood by data Automated count Monocytes 1.7 - 9.3 % Normal No Oct 9 /100 informati 2016 8:25 leukocyte on in AM s in source Blood by data Automated count Platelet 7.4 - fl Normal No Jun 9 mean 10.4 informati 2016 8:25 volume on in AM [Entitic source volume] data in Blood by Automated count Platelets 142 - 424 K/mm3 Normal No Oct 9 informati 2016 8:25 [#/volume on in AM ] in source Blood data Erythrocy 4.6 - 6.2 M/mm3 Low No Oct 9 sherrill informati 2017 8:25 [#/volume on in AM ] in source Amniotic data fluid Erythrocy 11.5 - % High No Jun 9 te 17.5 informati 2016 8:25 distribut on in AM ion width source [Entitic data volume] by Automated count Leukocyte 4.8 - K/MM3 Normal No Jun 9 s 10.8 informati 2016 8:25 [#/volume on in AM ] in source Blood data
--- OUTSIDE RECORDS SUMMARY | 2017-08-16 15:30 | External Medical Summary Rpt ---
Author Author [employer], [employer] Organization [employer] Address Unknown Phone Unavailable Results Blood [...] [facility] 12:58 PM in Serum or Plasma [id number] [place], [place] [id number] Powder Nipper: Burak Pretty PhD, Phone: [phone] Ferritin [Mass/volume] in Serum or Plasma [...] been Serum or defined Plasma by the [place] [facility] e and an Endocrine Society practice [...] 96(7):191 1-30.Perf ormed at: CB - [facility] [id number] [place], [place] [id number] Powder Nipper: Burak Pretty PhD, Phone: [phone] Hemoglobin A1c in Blood Observa Value [...]
[2017-08-16 17:24] LABS: HEMOGLOBIN 9.5 g/dL (14.1-18.0); LYMPH # 1.3 K/mm3 (0.7-4.5); LYMPH % 14.7 % (10-50)
[2017-08-16 17:46] VITALS: BP 128/74
[2017-08-16 18:15] VITALS: BP 128/74
--- NOTE | 2017-08-16 20:00 | CONSULT NOTE ---
Standard Demographics Patient Demo Date of Consultation: 08/16/17 Referring Provider: Blanca Watson MD Reason for Consultation: RECTAL BLEEDING PRIMARY DIAGNOSIS: RECTAL BLEEDING Allergies: Coded Allergies: Penicillins (I-ITCHING 12/30/16) History of Present Illness Chief Complaint: Passing blood History of Present Illness: Patient is a 66-year-old white male with a very long-standing history of chronic gastrointestinal complaints with bowel irregularity. He states that he actually has loose bowel movements but feels as though he has incomplete evacuation. He's been followed extensively by gastroenterology service here with Dr. Mccormack. Patient is on Plavix for coronary stenting 1 year ago. In December of this year he underwent colonoscopy by Dr. Norberto Mccormack which revealed left-sided diverticulosis and some internal hemorrhoids. These were banded 3. Two weeks ago he underwent flexible sigmoidoscopy by Dr. Mccormack and he had hemorrhoid banding 4. He has had some ongoing anal discomfort. He's also had some rectal bleeding for some time and this is becoming progressively more severe recently. Patient actually had an appointment to see Dr. Mccormack yesterday in [place] but at that time he was feeling relatively well and cancelled the appointment. However today he had passed what he describes as copious amounts of fresh blood per rectum. He felt lightheaded and therefore presented to the emergency department. His hemoglobin was within reasonable limits. He was admitted for inpatient management and surgical consultation was obtained. Patient describes ongoing discomfort but he has subsequently had passage of stool without blood. Past Medical History Reports: CAD. Surgical History Previous Surgery?Y PARTIAL LT KNEE REPLACEMN RT ROTATOR CUFF REPAIR LYMPH NODE REMOVED RT AXILLA LAP CHOLECYSTECTOMY HEMRHOIDECTOMY HERNIA REPAIR Allergies Coded Allergies: Penicillins (I-ITCHING 12/30/16) Medications: Reported Medications Diclofenac Sodium 75 MG PO Q12 #180 Simvastatin 20 MG PO DAILY #90 Losartan Potassium (Losartan 50MG) 50 MG PO DAILY #90 CLOPIDOGREL BISULFATE (Clopidogrel) 75 MG PO DAILY #90 Pioglitazone (Actos 15MG) 15 MG PO DAILY Smoking Hx Tobacco: No Smoker: Never Smoker Type: N/A Packs/day: N/A Are you/the child exposed to second-hand smoke: No Alcohol Alcohol: No Hx of Drug Use Drug Use? No Review of Systems Systems reviewed and negative: GI, , cardiovascular, constitutional, heme, respiratory Physical Exam Exam General appearance no acute distress, alert Respiratory clear to auscultation Cardiovascular normal heart sounds Abdomen non-tender, soft Findings/Data Rectal examination is deferred due to significant pain and discomfort but visualization of the external anal canal reveals no gross blood and no protruding pathologic hemorrhoids. Plan Plan: At this point would monitor hemoglobin for stability. No need for emergent surgical intervention at this time. Recommend gastroenterology evaluation. at 2000
[2017-08-16 20:56] VITALS: BP 126/67
[2017-08-16 21:20] VITALS: BP 126/67
[2017-08-16 21:28] LABS: LYMPH # 0.9 K/mm3 (0.7-4.5); LYMPH % 15.1 % (10-50)
[2017-08-16 21:43] LABS: HEMOGLOBIN 8.4 g/dL (14.1-18.0)
[2017-08-17] VITALS (21 sets, daily range): BP systolic 120–158; BP diastolic 63–87
[2017-08-17 06:48] LABS: HEMOGLOBIN 8.5 g/dL (14.1-18.0); LYMPH # 0.7 K/mm3 (0.7-4.5); LYMPH % 16.8 % (10-50)
--- NOTE | 2017-08-17 07:28 | ACUTE CARE PROGRESS NOTE (QUA) ---
Progress note: - Patient has been stable and comfortable. Currently showering. Hgb: 9.7 - 9.5 - 8.4 - 8.5 Recommend GI evaluation.
--- NOTE | 2017-08-17 07:28 | ACUTE CARE PROGRESS NOTE (QUA) ---
Progress note: - Patient has been stable and comfortable. Currently showering. Hgb: 9.7 - 9.5 - 8.4 - 8.5 Recommend GI evaluation.
--- NOTE | 2017-08-17 07:36 | SURGEON PROGRESS NOTE ---
Subjective data Subjective data: MARILY LAUREN III is a 66 M .Patient denies complaint of nausea and vomitting.He reports his last pain level as 0 on a 0-10 pain scale. Patient complains mostly of his ongoing chronic issues which have been managed by [facility] including stool frequency, anorectal pain, feeling of incomplete evacuation. No major bleeding but did pass a clot overnight. States he is hungry. Assessment findings Assessment Exam General appearance: normal appearance ABD: soft Patient plan Plan: Advance diet Additional data: Hgb 9.7 - 9.5 - 8.4 - 8.5 Possible internal hemorrhoid bleed vs. diverticular bleed with background of chronic gastrointestinal issues. Recommend GI evaluation. at 0786
--- NOTE | 2017-08-17 07:38 | PHARMACY CLINIC NOTE ---
Patient Demographics Patient Demographics Admission date: 08/16/17 Date: 08/17/17 Time: 0737 Allergies Coded Allergies: Penicillins (I-ITCHING 12/30/16) HEIGHT- FT: 5 IN: 9.00 K.704 VTE General Information Labs: Laboratory Tests 08/17 2105 1714 1330 Hematology Hgb (14.1 - 18.0 g/dL) 8.5 L 8.4 L 9.5 L 9.7 L Hct (42.0 - 52.0 %) 28.4 L 27.2 L 31.5 L 32.0 L Plt Count (142 - 424 K/mm3) 285 298 351 404 Disclaimer The following section includes nursing documentation that has been pulled in for pharmacy review. Patient's VTE score: 0 Patient's VTE Risk: VERY LOW RISK Clinical trial participant? No VTE prophylaxis NQF 0371 VTE prophylaxis ordered? Yes Type of prophylaxis/treatment: DONNIE at 0737
--- NOTE | 2017-08-17 09:47 | Discharge Summary Standard ---
Demographics: Admit date: 08/16/17 Chief complaint: rectal bleeding PRIMARY DIAGNOSIS: RECTAL BLEEDING Allergies: Coded Allergies: Penicillins (I-ITCHING 12/30/16) History of present illness: History of present illness: Patient is a 66-year-old white male with a very long-standing history of chronic gastrointestinal complaints with bowel irregularity. He states that he actually has loose bowel movements but feels as though he has incomplete evacuation. He's been followed extensively by gastroenterology service here with Dr. Mccormack. Patient is on Plavix for coronary stenting 1 year ago. In December of this year he underwent colonoscopy by Dr. Norberto Mccormack which revealed left-sided diverticulosis and some internal hemorrhoids. These were banded 3. Two weeks ago he underwent flexible sigmoidoscopy by Dr. Mccormack and he had hemorrhoid banding 4. He has had some ongoing anal discomfort. He's also had some rectal bleeding for some time and this is becoming progressively more severe recently. Patient actually had an appointment to see Dr. Mccormack yesterday in [place] but at that time he was feeling relatively well and cancelled the appointment. However today he had passed what he describes as copious amounts of fresh blood per rectum. He felt lightheaded and therefore presented to the emergency department. His hemoglobin was within reasonable limits. He was admitted for inpatient management and surgical consultation was obtained. Patient describes ongoing discomfort but he has subsequently had passage of stool without blood. Past medical history: Family HX Family Hx Insignificant No Diabetes Yes CAD Yes Hypertension Yes Hyperlipidemia Yes Cancer Yes TB Yes Immunization HX DT/Tetanus 5-10 Years Ago Flu THISFLUSEA Pneumonia Received In Past TB Test in last year No General CAD? No Angina: No [place]: No Hypertension? No Hyperlipidemia? No CHF? No DVT? No PE? No COPD? No Asthma? No Anemia? No GERD? No Gastric ulcers? No GI Bleed? No Hernia? Yes Thyroid Problems? No Hypothyroidism? No CVA? No Seizures? No Diabetes? Yes Insulin Dependent: No Insulin Pump: No Home FSBS? Yes Renal Insuffiency? No UTI? No Stones? Yes BPH? No GB Disease: Yes Nephritic Syndrome? No Asplenia? No Hepatitis? No Sickle Cell Disease? No Arthritis? No Migraines? No Cataracts? No Glaucoma? No MRSA? No HIV? No TB? No Anxiety? No Depression? No Cancer? No More? No Past Surgical HX Previous Surgery?Y PARTIAL LT KNEE REPLACEMN RT ROTATOR CUFF REPAIR LYMPH NODE REMOVED RT AXILLA LAP CHOLECYSTECTOMY HEMRHOIDECTOMY HERNIA REPAIR Current home meds: Reported Medications Diclofenac Sodium 75 MG PO Q12 #180 Simvastatin 20 MG PO DAILY #90 Losartan Potassium (Losartan 50MG) 50 MG PO DAILY #90 CLOPIDOGREL BISULFATE (Clopidogrel) 75 MG PO DAILY #90 Pioglitazone (Actos 15MG) 15 MG PO DAILY Social Hx: Smoking HX Tobacco No Type N/A Packs/day N/A Are you/the child exposed to second-hand smoke: No Alcohol Alcohol: No Hx of Drug Use Drug Use? No Review of systems: Constitutional No: no symptoms reported. Respiratory No: no symptoms reported. Cardiovascular No no symptoms reported Gastrointestinal/Abdominal see HPI, blood streaked bowels, nausea, vomiting Genitourinary No: no symptoms reported. Musculoskeletal No: no symptoms reported. Neurological No: see HPI. Exam: Lab data for last 24 hours: Laboratory Tests 08/17/17 1345: Misc Test Units BLOOD UNIT RELEASE 08/17/17 1145: POC Glucose 137 H 08/17/17 1048: Misc Test Units BLOOD UNIT RELEASE 08/17/17 0637: POC Glucose 105 08/17/17 0623: WBC 4.3 L, RBC 3.85 L, Hgb 8.5 L, Hct 28.4 L, MCV 73.7 L, RDW 22.3 H, Plt Count 285, MPV 7.5, Gran % 74.3, Gran # 3.2, Lymphocytes % 16.8, Monocytes % 4.7 , Eosinophils % 3.6, Basophils % 0.6, Lymphocytes # 0.7, Monocytes # 0.2, Eosinophils # 0.2, Basophils # 0.0, PUBS MCHC 30.0 L, MCH 22.1 L 08/16/17 2156: POC Glucose 118 H 08/16/175: WBC 6.2, RBC 3.75 L, Hgb 8.4 L, Hct 27.2 L, MCV 72.7 L, RDW 22.1 H, Plt Count 298, MPV 7.8, Gran % 77.8, Gran # 4.8, Lymphocytes % 15.1, Monocytes % 5.0 , Eosinophils % 1.7, Basophils % 0.5, Lymphocytes # 0.9, Monocytes # 0.3, Eosinophils # 0.1, Basophils # 0.0, PUBS MCHC 30.7 L, MCH 22.3 L 08/16/17 1714: WBC 8.9, RBC 4.27 L, Hgb 9.5 L, Hct 31.5 L, MCV 73.7 L, RDW 22.2 H, Plt Count 351, MPV 7.4, Gran % 79.6, Gran # 7.1, Lymphocytes % 14.7, Monocytes % 4.1 , Eosinophils % 1.2, Basophils % 0.4, Lymphocytes # 1.3, Monocytes # 0.4, Eosinophils # 0.1, Basophils # 0.0, PUBS MCHC 30.2 L, MCH 22.2 L Admission vital signs: 1ST Vital Signs Result Date Time Pulse Ox 100 08/16 1322 B/P 120/63 08/16 1322 Temp 98.4 08/16 1322 Pulse 86 08/16 1322 Resp 22 08/16 1322 O2 Delivery ROOM AIR 08/16 174 Exam General appearance: normal appearance, alert, active, awake, no acute distress Eyes: normal exam ENT: normal exam Neck: normal inspection, full range of motion Cardiovascular: normal exam, normal sinus rhythm, regular rate & rhythm, normal peripheral pulses Respiratory: normal exam, good air movement, no respiratory distress ABD: normal exam, normal bowel sounds, soft Genitourinary: normal voiding & quantity Extremities: normal exam, moves all, warm Musculoskeletal: normal exam Skin: normal exam, intact, warm Neuro: normal exam, alert, intact, oriented Hospital Course Hospital Course: pt request to be dc home and follow up with jose m on monday. rectal bleed- 2 units PRBC and surgery consult- see note. pt reports only blood tinged on toleit [paper. Pt states he feels better. Medications Medications: Discharge meds are as noted. Follow up Follow up in office in: 5 DAYS with: Hollis Watson MD Comment: rounded with lucila repeat cbc and cmp on sat at 1703
[2017-08-17 11:35] LABS: ANTIHUMAN GLOB CROSSMATCH COMPAT
[2017-08-17 11:36] LABS: ANTIHUMAN GLOB CROSSMATCH COMPAT
[2017-08-17] MEDS ORDERED: LEVAQUIN 750 M750 MG PO (16:53)
[2017-08-17 17:11] LABS: HEMOGLOBIN 10.3 g/dL (14.1-18.0)
== END 2017-08-17 21:50 | disposition home or self-care (01) ==
LOC: ER 13:14 → 2ND 15:25
PROVIDERS: Emergency Medicine
PROC: 30233N1 Transfusion of Nonautologous Red Blood Cells into Peripheral Vein, Percutaneous Approach (ICD-10-PCS; principal; 2017-08-17)
DX: K62.5 Hemorrhage of anus and rectum (principal); J18.9 Pneumonia, unspecified organism; Z88.0 Allergy status to penicillin; Z96.652 Presence of left artificial knee joint; Z90.49 Acquired absence of other specified parts of digestive tract; Z95.5 Presence of coronary angioplasty implant and graft; Z79.02 Long term (current) use of antithrombotics/antiplatelets; Z79.899 Other long term (current) drug therapy; Z83.3 Family history of diabetes mellitus; Z82.49 Family history of ischemic heart disease and other diseases of the circulatory system; Z83.49 Family history of other endocrine, nutritional and metabolic diseases; Z80.9 Family history of malignant neoplasm, unspecified
CPT/HCPCS: G0328; G0378; J1956; P9016; Q9967

== ENCOUNTER → 2017-08-21 | Outpatient (CLI) | payer BC ==
[~2017-08-21] MED LIST changes: +ACTOS 15MG TABL15 MG PO; +CLOPIDOGREL75 M2 PO; +DICLOFENAC SODI75 M2 PO; +LEVAQUIN 750 M750 MG PO; +LOSARTAN POTASS50 MG PO; +SIMVASTATIN20 MG PO
[2017-08-21 10:35] LABS: HEMOGLOBIN 10.9 g/dL (14.1-18.0)
== END ==
LOC: LAB 10:19
PROVIDERS: Nurse Practitioner Acute Care
DX: D64.9 Anemia, unspecified (principal)